=== PATIENT | male | born 1940 | race Caucasian/White ===

== ENCOUNTER 2016-11-15 00:56 | Emergency (ER) | payer OTHER ==
[2016-11-15] MEDS ORDERED: NORMAL SALINE 500 ML IV ONE (01:24)
[2016-11-15 01:32] LABS: BASOPHIL# 0.1 X 10^3uL (0.0-0.1); BASOPHILS 0.8 % (0.0-2.0); EOSINOPHILS 2.3 % (0.0-6.0); EOSINOPHILS# 0.1 X 10^3uL (0.0-0.4); HEMATOCRIT 40.6 % (42.0-54.0); HEMOGLOBIN 13.7 g/dL (14.0-18.0); LYMPHOCYTES 22.3 % (20.0-40.0); LYMPHOCYTES# 1.4 X 10^3uL (0.8-3.8); MEAN CELL VOLUME 102.1 fL (84.0-102.0); MEAN CORPUS. HGB CONCENTRATION 33.8 g/dL (32.0-36.0); MEAN CORPUSCULAR HEMOGLOBIN 34.5 pg (29.0-35.0); MEAN PLATELET VOLUME 7.2 fL (7.4-10.4); MONOCYTES 10.2 % (2.0-10.0); MONOCYTES# 0.6 X 10^3uL (0.2-1.0); NEUTROPHILS 64.4 % (54.0-75.0); NEUTROPHILS# 4.1 X 10^3uL (2.6-6.7); PLATELET COUNT 219 X 10^3uL (130-440); RED BLOOD COUNT 3.98 X 10^6uL (4.20-6.10); RED CELL DISTRIBUTION WIDTH 12.6 % (11.5-14.5); WHITE BLOOD COUNT 6.3 X 10^3uL (3.9-10.7)
[2016-11-15 01:36] LABS: BLOOD UREA NITROGEN 25 mg/dL (9-20); CALCIUM 9.9 mg/dL (8.4-10.2); CHLORIDE 99 mmol/L (98-107); EST GLOMERULAR FILTRATION RATE > 60 mL/min; GLUCOSE 100 mg/dL (70-100); MAGNESIUM 1.9 mg/dL (1.6-2.3); SODIUM 133 mmol/L (137-145)
[2016-11-15 01:49] LABS: TROPONIN I < 0.012 ng/mL (0.00-0.034)
--- NOTE | 2016-11-15 02:44 | ER NURSING DOCUMENTATION ---
Nurse's Notes [facility] Name:Pito Tomas Age:76 yrs Sex:Male :1940 Arrival Date:11/15/2016 Time:00:56 BedTrauma C Private MD:Hank Jaquez Diagnosis:Premature Ventricular Contractions (PVC);Dizziness - Vertigo Presentation: 11/15 01:06 Acuity: DEMETRIUS 2 01:10 Presenting complaint: Patient states: PT awoke about an hour ago to use the restroom and was lightheaded, the positional change from sitting to standing also made him lightheaded. PT states he doesn't feel right. Pt was worked up at a cardiac clinical in the [place] recently and may have a stent placed Monday. Transition of care: Home. 01:10 Method Of Arrival: Walk In Triage Assessment: 01:12 General: Appears in no apparent distress, Behavior is cooperative. Pain: Denies pain. rh EENT: Oral mucosa is dry. Neuro: Level of Consciousness is awake, alert, obeys commands, Oriented to person, place, time, event, Speech is normal. Cardiovascular: Capillary refill < 3 seconds Reports fatigue, lightheadedness. Respiratory: Airway is patent Respiratory pattern is regular, symmetrical. GI: Denies diarrhea, nausea, vomiting. : Denies burning with urination, urinary frequency. Derm: Skin is intact, is healthy with good turgor, Skin is pink, warm & dry. Historical: - Allergies: SULFA (SULFONAMIDES); - Home Meds: 1. Allopurinol Oral 2. Lipitor Oral 3. Synthroid Oral - PMHx: CAD; HYPOTHYROIDISM; Abdominal Pain, Unspecified (October 24, 2016); Malaise & Fatigue (October 24, 2016); [place]; - PSHx: HERNIA REPAIR; CABG; HIP SURGERY; - Tetanus: < 10 years. - Ebola Screening: : Patient negative for fever greater than or equal to 101.5 degrees Fahrenheit, and additional compatible Ebola Virus Disease symptoms. - Immunization history: Flu Vaccine < 1 year. - Social history: Smoking status: Patient uses tobacco products, current every day smoker. Screenin:30 Infectious Disease Risk None. Abuse screen: Denies threats or abuse. Denies injuries rh from another. Nutritional screening: No deficits noted. Assessment: 01:30 See Triage Assessment done by same RN. rh Vital Signs: 00:57 BP 163 / 92; Pulse 91; Resp 16; Temp 98.0; Pulse Ox 90% on R/A; Weight 79.38 kg; Height em1 5 ft. 8 in. (172.72 cm); Pain 0/10; 01:14 BP 115 / 75; Pulse 87; Pulse Ox 93% on R/A; em1 02:42 BP 132 / 83; Pulse 72; Resp 18; Pulse Ox 95% on R/A; Pain 0/10; rh 00:57 Body Mass Index 26.61 (79.38 kg, 172.72 cm) em1 ED Course: 00:59 EKG done. (by ED staff). Reviewed by Silvestre Armando MD. 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 Pulse ox on. NIBP on. rh 01:01 Patient arrived in ED. em2 01:01 Hank Jaquez MD is Private Physician. em2 01:06 Hortensia Mcelroy is Primary Nurse. rh 01:06 Triage completed. rh 01:08 Inserted saline lock: 20 gauge in right antecubital area and blood collected. Missed em1 attempts: 20 gauge X 1 in right antecubital area. 01:19 Silvestre Armando MD is Attending Physician. sc 01:30 EKG attached rh 01:31 Valuables Remains with patient Patient has correct armband on for positive rh identification. Placed in gown. Bed in low position. Call light in reach. Side rails up X 1. 01:48 Assisted with urinal. rh Administered Medications: 00:12 Drug: NS 0.9% 500 ml; Route: IV; Rate: bolus; Site: right antecubital; rh 01:54 Follow up: IV Status: Completed infusion; IV Intake: 500ml rh Point of Care Testing: Urine Dip: 01:53 pH: 6.5; ; Specific [place]: 1.015; Ketones: Negative; Glucose: Negative; Protein: rh Negative; Leukocytes: Negative; Nitrite: Negative ; Blood: Negative; Bilirubin: Negative ; Urobilinogen: Normal Intake: 01:54 IV: 500ml; Total: 500ml. rh Outcome: 02:11 Discharge ordered by . ks 02:42 Discharged to home via wheelchair, with significant other. 02:42 Condition: improved 02:42 Discharge Assessment: Patient awake, alert and oriented x 3. No cognitive and/or functional deficits noted. Patient verbalized understanding of disposition instructions. 02:42 Discharge instructions given to patient, significant other, Instructed on discharge instructions, follow up and referral plans. Demonstrated understanding of instructions. 02:42 IV D/Clyde 02:43 Patient left the ED. 11/16 11:07 Discharge F/U Call: Unable to reach: no answer st Signatures: Ruby Faust RN Silvestre Casey MD MD ks [employer], Deirdre[employer]tech em1 Meinking-reg, Deirdre-reg em2 Hortensia Mcelroy
--- NOTE | 2016-11-15 02:45 | ER PHYSICIAN DOCUMENTATION ---
Physician Documentation Name:Pito Tomas Age:76 yrs Sex:Male :1940 Arrival Date:11/15/2016 Time:00:56 BedTrauma C Private MD:Hank Jaquez ED, Scott Disposition: 11/15/16 02:11 Discharged to Home/Self Care. Impression: Premature Ventricular Contractions (PVC), Dizziness - Vertigo. - Condition is Good. - Discharge Instructions: DIZZINESS, Unk Cause, Arrythmia - ARRHYTHMIA, Unspecified. - Medical Reconciliation form form. - Follow up: Emergency Department; When: As needed; Reason: If symptoms return. - Problem is new. - Symptoms are unchanged. HPI: 11/15 02:05 This 76 yrs old Male presents to ER via Walk In with complaints of Dizziness. sc 02:05 The patient presents with dizziness, lightheadedness. Onset: The symptom(s)/episode sc began/occurred just prior to arrival. Context: occurred at home, occurred while the patient was getting up from bed, urinating. Modifying factors: The symptoms are alleviated by nothing. Associated signs and symptoms: The patient has no apparent associated signs or symptoms. cath scheduled Wed. results of nuclear scan and dopplers reviewed, partial carotid blockages and patient gets symptoms when putting chin to chest. Historical: - Allergies: SULFA (SULFONAMIDES); - Home Meds: 1. Allopurinol Oral 2. Lipitor Oral 3. Synthroid Oral - PMHx: CAD; HYPOTHYROIDISM; Abdominal Pain, Unspecified (October 24, 2016); Malaise & Fatigue (October 24, 2016); [place]; - PSHx: HERNIA REPAIR; CABG; HIP SURGERY; - Tetanus: < 10 years. - Ebola Screening: : Patient negative for fever greater than or equal to 101.5 degrees Fahrenheit, and additional compatible Ebola Virus Disease symptoms. - Immunization history: Flu Vaccine < 1 year. - Social history: Smoking status: Patient uses tobacco products, current every day smoker. ROS: 02:09 Constitutional: Negative for fever, chills, and weight loss. sc Eyes: Negative for injury, pain, redness, and discharge. ENT: Negative for injury, pain, and discharge. Neck: Negative for injury, pain, and swelling. Cardiovascular: Negative for chest pain, palpitations, and edema. Respiratory: Negative for shortness of breath, cough, wheezing, and pleuritic chest pain. Abdomen/GI: Negative for abdominal pain, nausea, vomiting, diarrhea, and constipation. Back: Negative for injury and pain. MS/Extremity: Negative for injury and deformity. : Skin: Negative for injury, rash, and discoloration. sc 02: Neuro: Positive for dizziness. Exam: Constitutional: This is a well developed, well nourished patient who is awake, alert, and in no acute distress. Head/Face: Normocephalic, atraumatic. Eyes: Pupils equal round and reactive to light, extra-ocular motions intact. Lids and lashes normal. Conjunctiva and sclera are non-icteric and not injected. Cornea within normal limits. Periorbital areas with no swelling, redness, or edema. ENT: Nares patent. No nasal discharge, no septal abnormalities noted. Tympanic membranes are normal and external auditory canals are clear. Oropharynx with no redness, swelling, or masses, exudates, or evidence of obstruction, uvula midline. Mucous membranes moist. Neck: Trachea midline, no thyromegaly or masses palpated, and no cervical lymphadenopathy. Supple, full range of motion without nuchal rigidity, or vertebral point tenderness. No meningismus. Chest/axilla: Normal chest wall appearance and motion. Nontender with no deformity. No lesions are appreciated. Cardiovascular: Regular rate and rhythm with a normal S1 and S2. No gallops, murmurs, or rubs. Normal PMI, no JVD. No pulse deficits. Respiratory: Lungs have equal breath sounds bilaterally, clear to auscultation and percussion. No rales, rhonchi or wheezes noted. No increased work of breathing, no retractions or nasal flaring. Abdomen/GI: Soft, non-tender, with normal bowel sounds. No distension or tympany. No guarding or rebound. No evidence of tenderness throughout. Back: No spinal tenderness. No costovertebral tenderness. Full range of motion. Skin: Warm, dry with normal turgor. Normal color with no rashes, no lesions, and no evidence of cellulitis. MS/ Extremity: Pulses equal, no cyanosis. Neurovascular intact. Full, normal range of motion, negative Homans's, calves equal bilaterally. : Neuro: Awake and alert, GCS 15, oriented to person, place, time, and situation. fl Cranial nerves II-XII grossly intact. Motor strength 5/5 in all extremities. Sensory grossly intact. Cerebellar exam normal. Normal gait. 02:11 Neuro: Orientation: is normal, Cerebellar function: is grossly normal, Gait: is steady. fl Vital Signs: 00:57 BP 163 / 92; Pulse 91; Resp 16; Temp 98.0; Pulse Ox 90% on R/A; Weight 79.38 kg; Height em1 5 ft. 8 in. (172.72 cm); Pain 0/10; 01:14 BP 115 / 75; Pulse 87; Pulse Ox 93% on R/A; em1 02:42 BP 132 / 83; Pulse 72; Resp 18; Pulse Ox 95% on R/A; Pain 0/10; rh 00:57 Body Mass Index 26.61 (79.38 kg, 172.72 cm) em1 MDM: 01:19 Patient medically screened. fl 01:30 EKG attached rh 02:10 Differential diagnosis: cardiac arrhythmia, hypovolemia, idiopathic dizziness, sc near-syncope, TIA, vertigo. Data reviewed: vital signs, nurses notes, lab test result(s), EKG, and as a result, I will discharge patient. Counseling: I had a detailed discussion with the patient and/or guardian regarding: the historical points, exam findings, and any diagnostic results supporting the discharge/admit diagnosis, lab results, the need for outpatient follow up, for a referral to a specialist. 02:12 ECG:. fl 11/15 01:36 Order name: CBC AUTO DIF, MDIF/RMOR IF IND; Complete Time: 02:13 EDMS 11/15 01:48 Interpretation: Normal Except: mild anemia. fl 11/15 01:49 Order name: BASIC METABOLIC PANEL; Complete Time: 02:05 EDMS 11/15 02:05 Interpretation: Normal Except: SODIUM 133. fl 11/15 01:49 Order name: MAGNESIUM; Complete Time: 02:05 EDMS 11/15 02:05 Interpretation: Normal. fl 11/15 01:49 Order name: TROPONIN I; Complete Time: 02:05 EDMS 11/15 02:13 Interpretation: Normal: Normal. fl 11/15 01:07 Order name: EKG - 12 Lead; Complete Time: 01:10 rh 11/15 01:07 Order name: Iv Saline Lock; Complete Time: 11/15 01:07 Order name: Cardiac Monitoring - Continuous; Complete Time: 11/15 01:08 Order name: Urine Dip; Complete Time: 01:54 rh EC:12 Rate is 80 beats/min. Rhythm is regular, Normal Sinus Rhythm with Right bundle branch sc block. IN interval is normal. QRS interval is normal. QT interval is normal. No Q waves. T waves are Normal. No ST changes noted. Clinical impression: Normal ECG. Interpreted by me. Reviewed by me. Dispensed Medications: 00:12 Drug: NS 0.9% 500 ml; Route: IV; Rate: bolus; Site: right antecubital; 01:54 Follow up: IV Status: Completed infusion; IV Intake: 500ml rh Point of Care Testing: Urine Dip: 01:53 pH: 6.5; ; Specific [place]: 1.015; Ketones: Negative; Glucose: Negative; Protein: rh Negative; Leukocytes: Negative; Nitrite: Negative ; Blood: Negative; Bilirubin: Negative ; Urobilinogen: Normal Signatures: Silvestre Armando MD MD sc Hofsess, Rachel
== END 2016-11-15 02:43 | disposition home or self-care (01) ==
LOC: ER 00:56
DX: I49.3 Ventricular premature depolarization (principal); R42 Dizziness and giddiness; D64.9 Anemia, unspecified; I45.10 Unspecified right bundle-branch block; I25.10 Atherosclerotic heart disease of native coronary artery without angina pectoris; Z95.1 Presence of aortocoronary bypass graft; Z79.899 Other long term (current) drug therapy; F17.210 Nicotine dependence, cigarettes, uncomplicated
CPT/HCPCS: 80048; 83735; 84484; 85025; 93005; 96360; 96361; 99284; J7040

== ENCOUNTER 2017-02-23 22:23 | Emergency (ER) | payer OTHER ==
--- NOTE | 2017-02-23 22:36 | ER NURSING DOCUMENTATION ---
Nurse's Notes [facility] Name:Pito Tomas Age:76 yrs Sex:Male :1940 Arrival Date:02/23/2017 Time:22:23 Bed4 Private MD:Hank Jaquez Diagnosis: Presentation: 02/23 22:32 Presenting complaint: pt walked out of ED before being seen by RN when he heard that lb the MD was not on premises. ED Course: 22:26 Patient arrived in ED. ma1 22:26 Hank Jaquez MD is Private Physician. ma1 22:27 Agustina Garces is Primary Nurse. lb Administered Medications: No medications were administered Outcome: 22:35 Patient left the ED. lb Signatures: Agustina Garces lb Izzy Bhandari ma1
== END 2017-02-23 22:35 | disposition left against medical advice (07) ==
LOC: ER 22:23
DX: Z53.21 Procedure and treatment not carried out due to patient leaving prior to being seen by health care provider (principal); R10.9 Unspecified abdominal pain
CPT/HCPCS: 99281